=== PATIENT | male | born 1985 | race African-American/Black ===

== ENCOUNTER 2024-12-10 14:18 | Emergency (ER) | payer OTHER ==
[~2024-12-10] VITALS: Ht 172.7 cm; Wt 70.3 kg
[2024-12-10] MEDS ORDERED: LIDOCAINE 0.5%-EPI 1:200,000 50 ML VIAL ONE (15:02)
[2024-12-10] MEDS: LIDOCAINE 1%-EPI 1:100,000 20 ML VIAL TP ONE (15:03)
[2024-12-10] MEDS ORDERED: HYDROCODONE/APAP 5/325MG TABLET ONE (15:39)
[2024-12-10] MEDS: HYDROCODONE/APAP 5/325MG TABLET PO ONE (15:42)
[2024-12-10 18:17] VITALS: BP 128/90; TEMP 98.6; O2SAT 100
== END 2024-12-10 18:18 | disposition home or self-care (01) ==
LOC: ER 14:20
DX: S01.01XA Laceration without foreign body of scalp, initial encounter (principal); S01.81XA Laceration without foreign body of other part of head, initial encounter; S43.004A Unspecified dislocation of right shoulder joint, initial encounter; Z59.00 Homelessness unspecified; V26.09XA Other motorcycle driver injured in collision with other nonmotor vehicle in nontraffic accident, initial encounter; Y93.55 Activity, bike riding; Y92.415 Exit ramp or entrance ramp of street or highway as the place of occurrence of the external cause; Y99.8 Other external cause status
CPT/HCPCS: 12004; 12014; 70450; 70486; 71045; 72125; 73030; 73080; 73502; 99284; A6403; J3490